=== PATIENT | female | born 1960 | race African-American/Black ===

== ENCOUNTER 2016-11-18 15:25 | Inpatient (IN) | payer BC ==
--- NOTE | ~2016-11-18 | DS ---
Discharge Summary [id number] [place]. [address] NAME: YAMILET SAWYER : 58 STATUS : DIS IN PAT#: [id number] AGE: 56 ADM/REG DATE : 11/18/16 MR#: [id number] REPORT SERV DATE: 11/23/16 DICTATED BY: LAUREANO LOUIS DATE: 11/22/16 REPORT STATUS : Draft TRANSCRIBED BY: MODL DATE: 11/22/16 ADMISSION DATE: 11/18/2016 DISCHARGE DATE: 11/22/2016 DISCHARGE DIAGNOSES: 1. Toxic metabolic encephalopathy. 2. Febrile viral illness. 3. No evidence of sepsis. 4. Prior history of CVA. 5. Chronic obstructive pulmonary disease. 6. Hypertension. 7. Type 2 diabetes mellitus. 8. Hepatosteatosis. 9. Depression. 10.Obesity. CONSULTANTS DURING THIS HOSPITALIZATION: None. INVASIVE PROCEDURES DURING THIS HOSPITALIZATION: A lumbar puncture with all cultures negative. HISTORY OF PRESENT ILLNESS: The patient is a 56-year-old female, triaged from the emergency room on 11/18/2016 at 1525 hours with complaints of confusion, lethargy, and altered mental status. For detailed history and physical exam, please see note dictated by Dr. Joss Aburto on 11/19/2016. HOSPITAL COURSE: After being admitted to the hospital, this patient initially was thought to have sepsis and possible meningitis, so she underwent a lumbar puncture. All lumbar puncture studies were negative. Within 24 to 48 hours after hydration, this patient's condition significantly improved. She became more alert and awake. She was oriented to time, place, and person, and after further 24 hours, her fever abated. We discontinued all her antibiotics as there was no evidence of any infection. This patient was thought to have viral syndrome, and currently, she is doing well. She is ambulating. She is tolerating a diet and is being discharged back home in stable condition. DISCHARGE DISPOSITION: Home. DISCHARGE ACTIVITY: As tolerated. DISCHARGE DIET: Low-sodium 1800 calorie [employer] diet. DISCHARGE MEDICATIONS: Valium 10 mg twice daily, Zantac 300 mg once at bedtime, Lantus 30 units subcu at bedtime, Prinzide 10 mg/12.5 mg one tablet daily, Reglan 5 mg to 10 mg p.o. three times daily, Lopressor 50 mg twice daily, [place] 10/325 one tablet three times daily p.r.n., Bydureon extended release 2 mg subcu once every Sunday, Bentyl 20 mg three times daily p.r.n. Discharge Summary [address] [place]. [address] NAME: YAMILET SAWYER : 58 STATUS : DIS IN PAT#: [id number] AGE: 56 ADM/REG DATE : 11/18/16 MR#: [id number] REPORT SERV DATE: 11/23/16 DICTATED BY: LAUREANO LOUIS DATE: 11/22/16 REPORT STATUS : Draft TRANSCRIBED BY: MODJadiel DATE: 11/22/16 DISCHARGE FOLLOWUP: With Dr. Gordon Dempsey in one week. More than 30 minutes spent planning this patient's discharge, reconciling medications, discussing hospital care, and findings with the patient and documenting this discharge. KIM/FRANKY Laureano Louis M.D. / [id number] CC: Iva Jones M.D.
--- NOTE | ~2016-11-18 | HP ---
History And Physical [address] [place]. [address] NAME: YAMILET ROBERTO : 58 STATUS : ADM Morenita PAT#: [id number] AGE: 56 ADM/REG DATE : 11/18/16 MR#: [id number] REPORT SERV DATE: 11/19/16 DICTATED BY: JOSS COHEN DATE: 11/19/16 REPORT STATUS : Draft TRANSCRIBED BY: MODL DATE: 11/19/16 DATE OF ADMISSION: 11/18/2016 CHIEF COMPLAINT: Generalized weakness, cough, fever, and chills. HISTORY OF PRESENT ILLNESS: This is a 56-year-old female with a history of obstructive sleep apnea, untreated at this point; history of CVA in 2012 with chronic residual left-sided weakness; COPD; diabetes mellitus; and depression who presents to the emergency room at [facility] with the above-mentioned complaint. History is obtained from the patient and reviewing data available on the [facility] system. According to Ms Roberto, she had been in the usual state of health until about two to three days ago when she started having a cough along with fever and shaking chills. The cough was mostly nonproductive and denied any night sweats or weight loss. After a bout of profound coughing, she did have a slight streaking in her sputum one time. Since then, she had not seen any. She also started having generalized weakness and some confusion and decided to come to the emergency room to be evaluated. In the emergency room, initial workup revealed a CT scan with no acute intracranial changes. Chest x-ray showed possibly a right lower lobe infiltrate. There is bronchiectasis in both bases. Hospitalist Service is asked to admit her for further evaluation and treatment. At the time of my evaluation, she was not in any acute distress. She had some chest pressure in the last 24 hours or so which lasted for more than 10 hours. She currently has no such complaint. She had no palpitations or orthopnea. She did have a cough for the last two days which was intractable and nonproductive. It was not associated with any weight loss or night sweats. She denied any falls or loss of consciousness. Did not have any nausea, vomiting, or diarrhea. No other history of recent hematemesis, hematochezia, or hematuria. PAST MEDICAL HISTORY: She had past medical history significant for history of CVA in 2013 with residual left-sided weakness. She has history of COPD, hypertension, diabetes mellitus, hepatic steatosis, depression, hernia repair, and cholecystectomy. She also has obstructive sleep apnea, and for some reason, the machine was changed to a newer one, but then the new machine was taken away. SOCIAL HISTORY: She has about [id number] history of smoking and continues to do so. Denied any alcohol use or recreational drug use. FAMILY HISTORY: Noncontributory. MEDICATIONS: At home were reviewed by me in the chart today and reordered by me. REVIEW OF SYSTEMS: As in history of present illness. All other systems were reviewed in detail and are quite unremarkable. History And Physical [address] [address] NAME: YAMILET ROBERTO : 58 STATUS : ADM Morenita PAT#: [id number] AGE: 56 ADM/REG DATE : 11/18/16 MR#: [id number] REPORT SERV DATE: 11/19/16 DICTATED BY: JOSS COHEN DATE: 11/19/16 REPORT STATUS : Draft TRANSCRIBED BY: FRANKY DATE: 11/19/16 PHYSICAL EXAMINATION: GENERAL: This is a pleasant 56-year-old, not in any acute distress. HEENT: Her head is atraumatic, normocephalic. She is alert, awake, and oriented to time, place, and person. Her pupils are equal, reacting to light and accommodating. External ocular muscles are intact. Membranes are moist and pink. Sclerae are nonicteric. NECK: Supple with no jugular venous distention, lymphadenopathy, or thyromegaly. LUNGS: Auscultation of her lungs reveal bilateral diffuse expiratory wheezes with some crackles in the right base. Trachea appeared to be in midline. HEART: Auscultation of her heart reveal a normal rate and rhythm with no murmurs, rubs, or gallops appreciated. ABDOMEN: Soft, nontender. Bowel sounds are present. EXTREMITIES: Show no cyanosis, clubbing, or edema. NEUROLOGIC: Grossly intact. No focal sensory or motor deficits. Higher functions appear intact. She is able to move all four extremities. VITAL SIGNS: Her vital signs today show a temperature of 102 degrees Fahrenheit, pulse 120, respirations are 36, and blood pressure is 173/85, oxygen saturations are 94% breathing 2 L of oxygen via nasal cannula. LABORATORY DATA: Reviewed on the [facility] system showed a normal CMP, but with a glucose of 208. Her lipase today was 432. Lactate was 1.6 today. CBC showed a white blood cell count of 10,700. Otherwise, normal hemoglobin, hematocrit, and platelet count. Influenza A and B were negative today and urinalysis showed no gross abnormality. Films of the CT scan of the brain and chest x-ray were reviewed by me on the [facility] and interpreted by me. Official radiology report for the CT was also reviewed. There is no acute intracranial pathology. CT of the abdomen and pelvis were also reviewed, and per my interpretation, there is no acute intraabdominal or pelvic pathology at this time. Chest x-ray films as interpreted by me showed bibasilar bronchiectasis, but with the right lower lobe infiltrate as well. A 12-lead EKG done in the emergency room was reviewed and interpreted by me. There is sinus tachycardia at a rate of [address]-T changes. IMPRESSION: 1. Mild altered mental status. 2. Generalized weakness. 3. Intractable cough. 4. Community-acquired pneumonia. 5. Febrile illness. 6. Chronic obstructive pulmonary disease with acute exacerbation. 7. Obstructive sleep apnea, noncompliant. 8. Essential hypertension. 9. Diabetes mellitus type 2. History And Physical [address] [address] NAME: YAMILET ROBERTO : 58 STATUS : ADM Morenita PAT#: [id number] AGE: 56 ADM/REG DATE : 11/18/16 MR#: [id number] REPORT SERV DATE: 11/19/16 DICTATED BY: JOSS COHEN DATE: 11/19/16 REPORT STATUS : Draft TRANSCRIBED BY: MODL DATE: 11/19/16 10.Hepatic steatosis. 11.Depression. PLAN: We will admit Ms Roberto to the Hospitalist Service for a 24-hour observation. We will keep her on telemetry. After cultures are obtained, we will start her on empiric IV antibiotics. We will start her on ceftriaxone and azithromycin. Follow Gram stain and cultures and proceed accordingly. We will maximize her bronchodilator treatments, continue supplemental oxygen therapy, provide her with cough suppressants and mucolytics as well. She will also be on antibiotics. We will also start her on blood sugar control with NovoLog given subcutaneously per sliding scale. A lumbar puncture was attempted in the ER by the ER providers to rule out [employer] infection, but the patient could not tolerate the procedure well and did not want them to proceed any further. We will consider Interventional Radiology to do bilateral CT if necessary tomorrow, but meanwhile, we will go ahead and treat her with Rocephin anyway. She also will not be on heparin tonight because of the LP. I will place her on SCDs for tonight and she may be re-evaluated in the morning. We will order a.m. labs, as well. Please see today's orders for all the details. I have discussed the above plans with the patient and her questions were answered and she is agreeable to the above recommendations. Hospitalist Service will be following her during her stay here. /FRANKY Joss Cohen M.D. / [id number] CC: Iva Dudley M.D.
[~2016-11-18 15:25] MED LIST: *UNABLE3; ACCU10 PO; ALTA2.5 PO; ALTACE PO; ASABAYER PO; BEN25 PO; BENTYL20 PO; CAT1 PO; CLONIDINE PO; DIAZEPAM PO; DITRO5 PO; Diazepam PO; ESTRACE1 MG PO; GLUCOPHAGE1000 MG PO; GLUCOTRO10 PO; GLUCPH PO; HUMALOG SC; HUMULIN R1 ML SC; HYDROCODONE PO; KDUR20 PO; KLOR-CON M2020 MEQ PO; L40 PO; LANTUS SC; LEVAQUIN5T PO; LIPITOR20 PO; LOP50 PO; LORT7 PO; METOPROLOL PO; MORPHINE; Metoprolol PO; NEUR400 PO; NEURONTIN PO; NEXIUM40 PO; NORCO1 TAB PO; PRILO PO; PRIN10 PO; PROAIR HFA INH; PROTONIX PO; PROVENTSOL INH; PROVHFA INH; PVC V; QVAR 80 MCG80 MCG INH; TOVIAZ8 MG PO; VALIUM10 MG PO; XOPENEX HFA INH; ZANTAC150 MG PO; ZESTORETIC1 TAB PO; ZOCOR20 PO; [UNRECOGNIZED DRUG - REMARK]
[2016-11-18 16:36] LABS: ASCORBIC ACID (UR NOT ORDER) NEG (NEG); BILIRUBIN, URINE NEGATIVE (NEG); ER URINALYSIS TAT 0 Hrs 07 Mins; KETONE, URINE NEGATIVE (NEG); LEUKOCYTE ESTERASE(NOT OR NEG (NEG); NITRITE (URINE) NEG (NEG); WBC (NOT ORDERED) (RFLEX) < 1 (0-5)
[2016-11-18 16:39] LABS: BASOPHILS 0.2 %; BASOPHILS ABSOLUTE 0.02 10/3/uL (0.0-0.16); EOSINOPHILS 0.5 %; EOSINOPHILS ABSOLUTE 0.05 10/3/uL (0.0-0.53); ER CBC TAT 0 Hrs 05 Mins; HEMATOCRIT 39.3 % (36.0-48.0); HEMOGLOBIN 12.8 g/dL (12.0-16.0); IMMATURE GRANULOCYTES 0.2 %; IMMATURE GRANULOCYTES ABSOLUTE 0.02 10/3/uL (0.0-0.11); LYMPHOCYTES 5.6 %; MANUAL DIFF NO %; MEAN CORPUS HGB CONC 32.6 g/dL (32.0-36.0); MEAN CORPUSCULAR HEMOGLOB 28.4 pg (26.0-34.0); MEAN CORPUSCULAR VOLUME 87.1 fL (80-100); MEAN PLATELET VOLUME 10.8 fL (9.2-13.0); MONOCYTES 5.8 %; MONOCYTES ABSOLUTE 0.62 10/3/uL (0.21-1.20); NEUTROPHILS 87.7 %; NEUTROPHILS ABSOLUTE 9.39 10/3/uL (2.02-8.40); PLATELET COUNT 374 10/3/uL (150-400); RBC DISTRIBUTION WIDTH 13.6 % (12.0-16.0); RED CELL COUNT 4.51 10/6/uL (4.0-5.6); WHITE BLOOD CELLS 10.7 10/3/uL (4.5-10.5)
[2016-11-18 16:46] LABS: PARTIAL THROMBO TIME 30.4 SEC (22.5-37.2); PROTIME (NOT ORD) 13.5 SEC (12.0-14.5)
[2016-11-18 16:51] LABS: INFLUENZA A SCREEN NEGATIVE (NEGATIVE); INFLUENZA B SCREEN NEGATIVE (NEGATIVE)
[2016-11-18 16:52] LABS: LACTATE 1.6 MMOL/L (0.3-2.4)
[2016-11-18 16:54] LABS: A/G RATIO 0.7 (0.7-1.9); ALBUMIN 3.1 G/DL (3.5-5.0); ALKALINE PHOSPHATASE 121 U/L (45-117); BUN (BLOOD UREA NITROGEN) 9 MG/DL (6-23); CALCIUM, SERUM 8.6 MG/DL (8.5-10.4); CHLORIDE, SERUM 100 MMOL/L (96-112); CO2 (CARBON DIOXIDE) 29 MMOL/L (24-34); CREATININE 0.94 MG/DL (0.55-1.02); GFR AFRICAN AMERICAN 78 ML/MIN (>=60); GFR NON AFRICAN AMERICAN 67 ML/MIN (>=60); GLOBULIN 4.3 G/DL (2.5-4.1); GLUCOSE, SERUM 208 MG/DL (60-99); POTASSIUM, SERUM 3.6 MMOL/L (3.5-5.3); SGOT(AST) 9 U/L (5-40); SGPT(ALT) 15 U/L (5-65); SODIUM, SERUM 138 MMOL/L (135-148); TOTAL BILIRUBIN 0.3 MG/DL (0-1.2); TOTAL PROTEIN 7.4 G/DL (6.0-8.5)
[2016-11-19] MEDS ORDERED: NORCO1 TAB PO (00:32)
[2016-11-19] MEDS ORDERED: VALIUM10 MG PO (00:32)
[2016-11-19] MEDS ORDERED: *UNABLE2 (00:33)
[2016-11-19 04:34] LABS: BASOPHILS 0.2 %; BASOPHILS ABSOLUTE 0.01 10/3/uL (0.0-0.16); EOSINOPHILS 0.3 %; EOSINOPHILS ABSOLUTE 0.02 10/3/uL (0.0-0.53); HEMOGLOBIN 11.1 g/dL (12.0-16.0); IMMATURE GRANULOCYTES 0.2 %; IMMATURE GRANULOCYTES ABSOLUTE 0.01 10/3/uL (0.0-0.11); LYMPHOCYTES 13.3 %; LYMPHOCYTES ABSOLUTE 0.83 10/3/uL (0.67-4.30); MEAN CORPUS HGB CONC 31.7 g/dL (32.0-36.0); MEAN CORPUSCULAR HEMOGLOB 27.5 pg (26.0-34.0); MEAN CORPUSCULAR VOLUME 86.8 fL (80-100); MEAN PLATELET VOLUME 10.4 fL (9.2-13.0); MONOCYTES 5.9 %; MONOCYTES ABSOLUTE 0.37 10/3/uL (0.21-1.20); NEUTROPHILS 80.1 %; NEUTROPHILS ABSOLUTE 5.01 10/3/uL (2.02-8.40); PLATELET COUNT 312 10/3/uL (150-400); RBC DISTRIBUTION WIDTH 13.7 % (12.0-16.0); RED CELL COUNT 4.03 10/6/uL (4.0-5.6)
[2016-11-19 04:38] LABS: MANUAL DIFF NO %; WHITE BLOOD CELLS 6.3 10/3/uL (4.5-10.5)
[2016-11-19 04:48] LABS: BUN (BLOOD UREA NITROGEN) 9 MG/DL (6-23); CALCIUM, SERUM 7.8 MG/DL (8.5-10.4); CHLORIDE, SERUM 106 MMOL/L (96-112); CO2 (CARBON DIOXIDE) 26 MMOL/L (24-34); CREATININE 0.88 MG/DL (0.55-1.02); GFR AFRICAN AMERICAN 85 ML/MIN (>=60); GFR NON AFRICAN AMERICAN 73 ML/MIN (>=60); GLUCOSE, SERUM 194 MG/DL (60-99); PHOSPHORUS, SERUM 3.3 MG/DL (2.5-4.5); POTASSIUM, SERUM 3.3 MMOL/L (3.5-5.3); SODIUM, SERUM 140 MMOL/L (135-148)
[2016-11-19 04:49] LABS: ULTRASENSITIVE TSH 0.169 MCIU/ML (0.358-3.740)
[2016-11-19 06:00] LABS: PROCALCITONIN 0.06 ng/mL (<0.5)
[2016-11-19 11:01] LABS: ALLENS TEST Pos; BE (BASE EXCESS) -0.4 MEQ/L (0 +/- 2.5); CARBOXYHEMOGLOBIN 0.3 % (0-3); DEVICE PRB; HCO3 (ACTUAL BICARBONATE) 23.3 MEQ/L (23-27); HEMOBLOGIN CONTENT 12.5 G/DL (12-16); INSTRUMENT SERIAL # 35151; METHEMOGLOBIN 0.5 % (0-3); O2 CONTENT 17.6 VOL% (18-24); OPERATOR ID 14472; PCO2 (CO2 TENSION) 35 MMHG (35-45); PO2 (O2 TENSION) 163 MMHG (79-93); SAMPLE Arterial; pH 7.44 (7.37-7.43)
[2016-11-19] MEDS ORDERED: METFORMIN PO (11:03)
[2016-11-19] MEDS ORDERED: LOP50 PO (11:04)
[2016-11-19] MEDS ORDERED: BYDUREON2 MG SQ (11:05)
[2016-11-19] MEDS ORDERED: DIURETIC (11:05)
[2016-11-19] MEDS ORDERED: PRINZIDE1 TAB PO (11:05)
[2016-11-19] MEDS ORDERED: LANTUS SC (11:05)
[2016-11-19 12:50] LABS: INFLUENZA A SCREEN NEGATIVE (NEGATIVE); INFLUENZA B SCREEN NEGATIVE (NEGATIVE)
[2016-11-19 16:18] LABS: TROPONIN I 0.02 NG/ML (<0.05)
[2016-11-19 16:19] LABS: CK-MB < 0.5 NG/ML; CPK 194 U/L (0-200)
[2016-11-20 06:18] LABS: BASOPHILS 0 %; EOSINOPHILS 0 %; HEMATOCRIT 35.6 % (36.0-48.0); HEMOGLOBIN 11.4 g/dL (12.0-16.0); IMMATURE GRANULOCYTES 0.1 %; IMMATURE GRANULOCYTES ABSOLUTE 0.01 10/3/uL (0.0-0.11); LYMPHOCYTES 6.7 %; LYMPHOCYTES ABSOLUTE 0.66 10/3/uL (0.67-4.30); MANUAL DIFF NO %; MEAN CORPUSCULAR HEMOGLOB 28.2 pg (26.0-34.0); MEAN CORPUSCULAR VOLUME 88.1 fL (80-100); MEAN PLATELET VOLUME 10.3 fL (9.2-13.0); MONOCYTES 1.6 %; MONOCYTES ABSOLUTE 0.16 10/3/uL (0.21-1.20); NEUTROPHILS 91.6 %; NEUTROPHILS ABSOLUTE 9.07 10/3/uL (2.02-8.40); PLATELET COUNT 293 10/3/uL (150-400); RBC DISTRIBUTION WIDTH 13.6 % (12.0-16.0); RED CELL COUNT 4.04 10/6/uL (4.0-5.6); WHITE BLOOD CELLS 9.9 10/3/uL (4.5-10.5)
[2016-11-20 06:42] LABS: BUN (BLOOD UREA NITROGEN) 10 MG/DL (6-23); CALCIUM, SERUM 8.3 MG/DL (8.5-10.4); CHLORIDE, SERUM 107 MMOL/L (96-112); CREATININE 0.79 MG/DL (0.55-1.02); GFR AFRICAN AMERICAN 96 ML/MIN (>=60); GFR NON AFRICAN AMERICAN 83 ML/MIN (>=60); PHOSPHORUS, SERUM 2.6 MG/DL (2.5-4.5); SODIUM, SERUM 138 MMOL/L (135-148); T4 (THYROXINE) TOTAL 7.4 MCG/DL (4.5-12.0)
[2016-11-20 06:43] LABS: CO2 (CARBON DIOXIDE) 20 MMOL/L (24-34); GLUCOSE, SERUM 333 MG/DL (60-99); POTASSIUM, SERUM 4.4 MMOL/L (3.5-5.3)
[2016-11-20] MEDS ORDERED: REGL PO (08:20)
[2016-11-20] MEDS ORDERED: ZANTAC300 MG PO (08:20)
[2016-11-20] MEDS ORDERED: BENTYL20 PO (08:21)
[2016-11-20 18:12] LABS: GLUCOSE CSF 192 MG/DL (45-70)
[2016-11-20 18:45] LABS: CSF APPEARANCE (NOT ORD) CLOUDY (CLEAR); CSF BASO 0 % (NO REF RANGE); CSF COLOR (NOT ORD) PINK (COLORLESS); CSF EOS 0 % (0-1); CSF LYMPH (NOT ORD) 29 % (28-96); CSF MONO 4 % (16-56); CSF RBC (NOT ORD) 8000 MM3 (NO REFERENCE); CSF SEGS (NOT ORD) 67 % (0-7); CSF WBC (NOT ORD) 9 /uL (0-10); CSF XANTHROCHROMIA NEG (NEG)
[2016-11-20 18:47] LABS: CSF APPEARANCE (NOT ORD) CLOUDY (CLEAR); CSF BASO 0 % (NO REF RANGE); CSF COLOR (NOT ORD) PINK (COLORLESS); CSF EOS 0 % (0-1); CSF LYMPH (NOT ORD) 16 % (28-96); CSF MONO 3 % (16-56); CSF RBC (NOT ORD) 8000 MM3 (NO REFERENCE); CSF SEGS (NOT ORD) 81 % (0-7); CSF WBC (NOT ORD) 12 /uL (0-10); CSF XANTHROCHROMIA NEG (NEG)
[2016-11-21 06:41] LABS: BASOPHILS 0.1 %; BASOPHILS ABSOLUTE 0.01 10/3/uL (0.0-0.16); EOSINOPHILS 0 %; HEMATOCRIT 35.2 % (36.0-48.0); HEMOGLOBIN 11.5 g/dL (12.0-16.0); IMMATURE GRANULOCYTES 0.2 %; IMMATURE GRANULOCYTES ABSOLUTE 0.03 10/3/uL (0.0-0.11); LYMPHOCYTES 8.7 %; LYMPHOCYTES ABSOLUTE 1.14 10/3/uL (0.67-4.30); MANUAL DIFF NO %; MEAN CORPUS HGB CONC 32.7 g/dL (32.0-36.0); MEAN CORPUSCULAR HEMOGLOB 28.3 pg (26.0-34.0); MEAN CORPUSCULAR VOLUME 86.5 fL (80-100); MONOCYTES 6.7 %; MONOCYTES ABSOLUTE 0.87 10/3/uL (0.21-1.20); NEUTROPHILS 84.3 %; NEUTROPHILS ABSOLUTE 10.98 10/3/uL (2.02-8.40); PLATELET COUNT 325 10/3/uL (150-400); RBC DISTRIBUTION WIDTH 13.8 % (12.0-16.0); RED CELL COUNT 4.07 10/6/uL (4.0-5.6)
[2016-11-21 06:57] LABS: CHLORIDE, SERUM 107 MMOL/L (96-112); CO2 (CARBON DIOXIDE) 23 MMOL/L (24-34); CREATININE 0.97 MG/DL (0.55-1.02); GFR AFRICAN AMERICAN 75 ML/MIN (>=60); GFR NON AFRICAN AMERICAN 65 ML/MIN (>=60); POTASSIUM, SERUM 3.9 MMOL/L (3.5-5.3); SODIUM, SERUM 139 MMOL/L (135-148)
[2016-11-21 06:58] LABS: BUN (BLOOD UREA NITROGEN) 15 MG/DL (6-23); GLUCOSE, SERUM 451 MG/DL (60-99)
[2016-11-22 05:29] LABS: BASOPHILS 0 %; EOSINOPHILS 0 %; HEMATOCRIT 33.1 % (36.0-48.0); HEMOGLOBIN 10.7 g/dL (12.0-16.0); IMMATURE GRANULOCYTES 0.4 %; IMMATURE GRANULOCYTES ABSOLUTE 0.04 10/3/uL (0.0-0.11); MEAN CORPUS HGB CONC 32.3 g/dL (32.0-36.0); MEAN CORPUSCULAR HEMOGLOB 27.9 pg (26.0-34.0); MEAN CORPUSCULAR VOLUME 86.2 fL (80-100); MEAN PLATELET VOLUME 10.6 fL (9.2-13.0); MONOCYTES 6.9 %; MONOCYTES ABSOLUTE 0.74 10/3/uL (0.21-1.20); NEUTROPHILS 78.7 %; NEUTROPHILS ABSOLUTE 8.46 10/3/uL (2.02-8.40); PLATELET COUNT 333 10/3/uL (150-400); RBC DISTRIBUTION WIDTH 13.9 % (12.0-16.0); RED CELL COUNT 3.84 10/6/uL (4.0-5.6); WHITE BLOOD CELLS 10.7 10/3/uL (4.5-10.5)
[2016-11-22 05:32] LABS: MANUAL DIFF NO %
[2016-11-22 05:48] LABS: ALBUMIN 2.6 G/DL (3.5-5.0); BUN (BLOOD UREA NITROGEN) 13 MG/DL (6-23); CALCIUM, SERUM 8.2 MG/DL (8.5-10.4); CHLORIDE, SERUM 105 MMOL/L (96-112); CO2 (CARBON DIOXIDE) 26 MMOL/L (24-34); CREATININE 0.85 MG/DL (0.55-1.02); GFR AFRICAN AMERICAN 88 ML/MIN (>=60); GFR NON AFRICAN AMERICAN 76 ML/MIN (>=60); PHOSPHORUS, SERUM 2.1 MG/DL (2.5-4.5); POTASSIUM, SERUM 3.8 MMOL/L (3.5-5.3); SODIUM, SERUM 138 MMOL/L (135-148)
[2016-11-22 05:49] LABS: GLUCOSE, SERUM 262 MG/DL (60-99)
[2016-11-22 17:16] LABS: VDRL, CSF Non Reactive (NR)
[2016-11-23 14:01] LABS: HSV DNA TYPE 1 Not Detected (NOTDET); HSV DNA TYPE 2 Not Detected (NOTDET)
[2016-11-24 11:52] LABS: M.TB COMP PCR NON RESP NOT DETECTED (NOTDET)
[2016-11-24 16:55] LABS: ALBUMIN 31.5 mg/dL (8.4-34.2); ALPHA 1 1.8 mg/dL (0.0-3.1); BETA 8.7 mg/dL (0.0-8.1); GAMMA 4.6 mg/dL (0.0-5.4); PREALBUMIN 1.1 mg/dL (0.0-3.1); PROTEIN, CSF 50.7 mg/dL (15.0-45.0)
== END 2016-11-22 17:33 | disposition home or self-care (01) | DRG 865 ==
LOC: ER 15:25 → 6NO 23:59
PROVIDERS: Internal Medicine; Internal Medicine Pulmonary Disease; Nurse Practitioner Family; Physician Assistant Medical
PROC: 009U3ZX Drainage of Spinal Canal, Percutaneous Approach, Diagnostic (ICD-10-PCS; principal; 2016-11-20)
PROC: B01B1ZZ Fluoroscopy of Spinal Cord using Low Osmolar Contrast (ICD-10-PCS; 2016-11-20)
DX: B34.9 Viral infection, unspecified (principal); G93.41 Metabolic encephalopathy; J96.01 Acute respiratory failure with hypoxia; Z68.41 Body mass index [BMI] 40.0-44.9, adult; I69.354 Hemiplegia and hemiparesis following cerebral infarction affecting left non-dominant side; F32.9 Major depressive disorder, single episode, unspecified; E11.9 Type 2 diabetes mellitus without complications; K76.0 Fatty (change of) liver, not elsewhere classified; E66.9 Obesity, unspecified; G47.33 Obstructive sleep apnea (adult) (pediatric); I10 Essential (primary) hypertension; F17.210 Nicotine dependence, cigarettes, uncomplicated; J44.9 Chronic obstructive pulmonary disease, unspecified; Z90.49 Acquired absence of other specified parts of digestive tract
CPT/HCPCS: 36600; 62270; 70450; 71010; 74176; 77003; 80048; 80053; 80069; 81001; 82550; 82553; 82805; 82945; 82962; 83036; 83605; 83690; 83735; 84100; 84145; 84166; 84436; 84443; 84484; 85025; 85610; 85730; 86403; 86403-59; 86592; 87015; 87040; 87070; 87102; 87116; 87205; 87210; 87327; 87449; 87529; 87529-59; 87556; 87804; 87880; 88112; 89051; 93005; 94640; 99285; A9270-GY; J0360; J0456; J2405; J2930; J3370